=== PATIENT | female | born 1995 | race Caucasian/White ===

== ENCOUNTER → 2018-10-03 13:16 | Outpatient (CLI) | payer OTHER, SELFPAY ==
[2018-10-03 09:45] VITALS: BMI 25.8
[2018-10-03 16:33] LABS: Chlamydia Trachomatis by PCR Negative (Negative); Neisserai gonorrhoeae by PCR Negative (Negative); Probe Check PASS; Sample Adequacy Control PASS; Specimen Processing Control PASS
== END ==
PROVIDERS: Family Provider Family Medicine; PCP Family Medicine; Referring Provider Obstetrics & Gynecology; Visit Provider Obstetrics & Gynecology
DX: Z34.91 Encounter for supervision of normal pregnancy, unspecified, first trimester (principal); Z3A.08 8 weeks gestation of pregnancy
CPT/HCPCS: 87086; 87088; 87491; 87591

== ENCOUNTER → 2018-10-18 | Outpatient (CLI) | payer OTHER, SELFPAY ==
[2018-10-18 08:30] VITALS: BMI 25.8
[2018-10-18 09:22] LABS: Absolute Lymphocyte Count 2.15 X10^3/uL (0.83-4.51); Absolute Neutrophil Count 5.3 X10^3/uL (2.0-7.7); Basophil# 0.03 X10^3/uL; Basophil% 0.4 % (0-1); Eosinophil# 0.06 X10^3/uL; Eosinophils% 0.7 % (0-5); Hematocrit 41.1 % (37-47); Hemoglobin 13.7 g/dL (12.0-15.0); Lymphocyte # 2.15 X10^3/ul (4.0); Lymphocyte % 25.7 % (19-41); Mean Corp Hgb Conc 33.3 g/dL (32-36); Mean Corpuscular Hgb 28.8 pg (27.0-32.0); Mean Corpuscular Volume 86.5 fL (81-99); Mean Platelet Vol. 10.8 fl (6.2-12.0); Monocyte# 0.82 X10^3/uL; Monocyte% 9.8 % (0-10); NRBC Flagged by Analyzer 0 % (0-5); Neutrophil # 5.27 X10^3/uL (2.7-7.7); Platelet Count 263 K/mm3 (150-450); RBC Distribution Width CV 12.9 % (11.6-14.6); RBC Distribution Width SD 40.4 fl (35.1-43.9); Red Blood Count 4.75 M/mm3 (4.2-5.4); White Blood Count 8.4 K/mm3 (4.4-11.0)
[2018-10-18 10:28] LABS: HIV - WCH Non-Reactive (Nonreactive); Rubella IgG > 500.0 IU/mL
[2018-10-21 00:53] LABS: Rapid Plasmin Reagin (RPR) NONREACTIVE (NONREACTIVE)
== END | disposition home or self-care (01) ==
LOC: PAVLAB 09:08
PROVIDERS: Family Provider Family Medicine; PCP Family Medicine; Referring Provider Obstetrics & Gynecology; Visit Provider Obstetrics & Gynecology
DX: Z34.91 Encounter for supervision of normal pregnancy, unspecified, first trimester (principal); Z3A.08 8 weeks gestation of pregnancy
CPT/HCPCS: 36415; 85025; 86592; 86703; 86762; 86850; 86900; 86901

== ENCOUNTER → 2019-03-16 16:26 | Outpatient (CLI) | payer OTHER, SELFPAY ==
[2019-03-16 16:00] VITALS: BMI 25.8
[2019-03-16 16:54] LABS: Absolute Lymphocyte Count 2.48 X10^3/uL (0.83-4.51); Absolute Neutrophil Count 8.8 X10^3/uL (2.0-7.7); Basophil# 0.05 X10^3/uL; Basophil% 0.4 % (0-1); Eosinophil# 0.07 X10^3/uL; Eosinophils% 0.6 % (0-5); Hematocrit 33.6 % (37-47); Hemoglobin 11.2 g/dL (12.0-15.0); Lymphocyte # 2.48 X10^3/ul (4.0); Lymphocyte % 19.7 % (19-41); Mean Corp Hgb Conc 33.3 g/dL (32-36); Mean Corpuscular Hgb 29.6 pg (27.0-32.0); Mean Corpuscular Volume 88.7 fL (81-99); Mean Platelet Vol. 11.9 fl (6.2-12.0); Monocyte# 1.15 X10^3/uL; Monocyte% 9.1 % (0-10); NRBC Flagged by Analyzer 0 % (0-5); Neutrophil # 8.75 X10^3/uL (2.7-7.7); Neutrophil % 69.2 % (47-70); Platelet Count 214 K/mm3 (150-450); RBC Distribution Width SD 41.8 fl (35.1-43.9); Red Blood Count 3.79 M/mm3 (4.2-5.4); White Blood Count 12.6 K/mm3 (4.4-11.0)
[2019-03-16 17:21] LABS: Glucose Challenge Gest 1H 50g 84 mg/dL (70-140)
[2019-03-17 08:51] LABS: Hepatitis B Surface Antigen Non-Reactive (Nonreactive)
== END ==
PROVIDERS: PCP Family Medicine; Referring Provider Obstetrics & Gynecology; Visit Provider Obstetrics & Gynecology
DX: Z34.01 Encounter for supervision of normal first pregnancy, first trimester (principal)
CPT/HCPCS: 36415; 82950; 85025; 87340

== ENCOUNTER → 2019-05-08 | Outpatient (CLI) | payer OTHER, SELFPAY ==
[2019-05-08 14:50] VITALS: BMI 25.8
== END | disposition home or self-care (01) ==
LOC: LABSPEC 16:47
PROVIDERS: PCP Family Medicine; Referring Provider Nurse Practitioner Women's Health; Visit Provider Nurse Practitioner Women's Health
DX: Z34.90 Encounter for supervision of normal pregnancy, unspecified, unspecified trimester (principal)
CPT/HCPCS: 87081

== ENCOUNTER 2019-05-26 03:06 | Inpatient (IN) | payer OTHER, SELFPAY ==
[2019-03-16 16:00] VITALS: BMI 25.8
[2019-05-22 14:55] VITALS: BMI 25.8
[2019-05-26] VITALS (23 sets, daily range): BP systolic 100–131; BP diastolic 54–79; PULSE 75–115; RESP 16–18; TEMP 36.4–37.1; O2SAT 96–99; BMI 30.1
[2019-05-26] MEDS: Lactated Ringers 1,000 ML 999 ML IV (00:50)
[2019-05-26 01:01] LABS: Absolute Lymphocyte Count 2.53 X10^3/uL (0.83-4.51); Absolute Neutrophil Count 11.2 X10^3/uL (2.0-7.7); Basophil# 0.04 X10^3/uL; Basophil% 0.3 % (0-1); Eosinophil# 0.03 X10^3/uL; Eosinophils% 0.2 % (0-5); Hematocrit 32.8 % (37-47); Hemoglobin 10.8 g/dL (12.0-15.0); Lymphocyte # 2.53 X10^3/ul (4.0); Lymphocyte % 16.6 % (19-41); Mean Corp Hgb Conc 32.9 g/dL (32-36); Mean Corpuscular Hgb 28.6 pg (27.0-32.0); Mean Corpuscular Volume 86.8 fL (81-99); Mean Platelet Vol. 12.8 fl (6.2-12.0); Monocyte# 1.24 X10^3/uL; Monocyte% 8.1 % (0-10); NRBC Flagged by Analyzer 0 % (0-5); Neutrophil # 11.23 X10^3/uL (2.7-7.7); Neutrophil % 73.7 % (47-70); Platelet Count 144 K/mm3 (150-450); RBC Distribution Width SD 43.9 fl (35.1-43.9); Red Blood Count 3.78 M/mm3 (4.2-5.4); White Blood Count 15.2 K/mm3 (4.4-11.0)
[2019-05-26 01:16] LABS: Fibrinogen 378 mg/dl (203-444)
[2019-05-26] MEDS: Lactated Ringers 1,000 ML 100 ML IV (01:51)
--- NOTE | 2019-05-26 03:56 | HP.PCM_ITS ---
- Problem List (1) Supervision of normal Status: Acute Qualifiers: Comment: PRR KD 06/01/19 surprise Spouse Luke (2) Status: Acute Qualifiers: Comment: declined genetic, carrier and NTD . Normal anatomy History Date of Admission: 05/26/19 Final KD: 06/01/19 Gestational age: 39 Weeks and 1 Days History of this : This is a 23 year-old, , at 39 weeks gestational age presents IAL 4 cm, with bloody show, good fm, regular ctx. Surgical History: Surgical History (Last Reviewed 05/22/19 @ 14:50 by Tatiana Garcia) [place] teeth extracted K08.499 Allergies No Known Allergies Allergy (Verified 05/22/19 14:51) Home Medications: Home Medications multivitamin no.47-iron fum 27 mg-folate no.1 1 mg-dha 300 mg capsule 1 cap PO DAILY cap 10/03/18 Smoking Status: Never smoker NST - FHR Rate Baby A Baseline: 130 Variability:: Moderate Accelerations:: 15 x 15 Decelerations:: None NST Reactive:: Yes FHR Category:: Category I Uterine Activity:: q 4-5 History Past Pregnancies: Past Pregnancies Delivery Date Name GA/ Weeks Outcome Route Wt Sex Labor Length Anesthesia Delivery Location Provider FOB Labs: Mom's Labs & Results 05/26/19 05/26/19 00:48 00:48 WBC 15.2 H RBC 3.78 L Hgb 10.8 L Hct 32.8 L MCV 86.8 MCH 28.6 MCHC 32.9 RDW Std Deviation 43.9 RDW Coeff of Scooter 14.0 Plt Count 144 L MPV 12.8 H Immature Gran % (Auto) 1.100 H Neut % (Auto) 73.7 H Lymph % (Auto) 16.6 L [place] % (Auto) 8.1 Eos % (Auto) 0.2 Baso % (Auto) 0.3 Absolute Neuts (auto) 11.2 H Absolute Lymphs (auto) 2.53 Nucleated RBC % 0 Fibrinogen 378 Course Did the patient receive Yes care? Labs Blood Type: A RH: POSITIVE RPR/VDRL/Syphilis Nonreactive Rubella status Immune HbSAg Negative Date Done: 03/16/19 Chlamydia Negative Gonorrhea Negative HIV/AIDS Non-Reactive Group B Strep: Negative Current Obstetrical History Gestational Diabetes No Incompetent Cervix No Infertility No IUGR No Macrosomia No Hypertension/Pre-eclampsia No Placenta Previa/Abruption Yes: resolved at 28 weeks PTL/PROM No Uterine anomaly No Oligohydramnios No Polyhydramnios No Multiple gestation No Past Medical History Asthma No Diabetes No Hypertension No Heart disease No Mitral valve prolapse No Neurologic/Seizure disorder/ No Migraines Kidney disease No Liver disease No Varicosities Yes: bilat legs Clotting disorders/Hx of DVT No Thyroid Dysfunction No Other medical diseases No Psychiatric disorders No Major trauma No Abnormal PAP smear No Sleep apnea No Mammogram in the last 2 years No Social History Marital Status: Alleged father yenni isaac Hx Smoking No Smoking Status Never smoker How long have you used n/a substances (years)? What date/time did you last n/a use any of the above? Have you had any previous n/a inpatient or outpatient treatment Expected Infant Delivery Method: Spontaneous Vaginal Review of Systems Constitutional: Denies: Fever, Malaise Eyes: Denies: Blurred vision, Vision Change HEENT: Denies: Head Aches, Visual Changes Cardiovascular: Denies: Chest Pain, Palpitations Respiratory: Denies: Cough, Shortness of Breath, Wheezing Gastrointestinal: Denies: Abdominal Pain, Diarrhea, Nausea, Vomiting Genitourinary: Denies: Dysuria, Hematuria Gynecological: Reports: Vaginal bleeding Musculoskeletal: Denies: Joint Pain, Muscle pain Skin: Denies: Lesions, Rash Neurological: Denies: Blurred vision, Focal weakness, Headaches Psychiatric: Denies: Anxiety, Depression Endocrine: Denies: Heat/ Cold Intolerance Hematologic/ Lymphatic: Denies: Easy Bruising, Easy Bleeding Physical Exam Vitals: Vital Signs Temp Pulse BP Pulse Ox 98.7 F 86 118/67 97 05/26/19 02:48 05/26/19 02:48 05/26/19 02:48 05/26/19 02:48 General: Alert, Cooperative, No apparent distress HEENT: Atraumatic, Normocephalic. Negative for: Thyromegaly, Lymphadenopathy Cardiovascular: Regular rate Lungs: Normal air movement Abdomen: Soft, Non Tender, Gravid Neurological: Deep Tendon Reflexes 2+/4 and Symmetrical, Neuro grossly intact. Negative for: Clonus RN TELEPHONE TRIAGE: Normal external genitalia. Negative for: Vulvar lesions Estimated gestational size: Appropriate for gestational size Presentation: Cephalic Cervix Dilation (cm): 4 Station: -1 Effacement (%): 70 Assessment/Plan All Active Problems (Last Reviewed 05/22/19 @ 14:50 by Tatiana Garcia) Supervision of normal (Acute) (Acute) Complete placenta previa nos or without hemorrhage, second trimester (Resolved) This is a 23 year-old, at 39 weeks gestational age presents IAL. Patient presents IAL, plan expectant management for , Pitocin/AROM if needed. Pain management: First minimal intervention. GBS negative. Management of any complications: None I have reviewed the [facility] and made any clinically relevant updates.
[2019-05-26] MEDS: 0.9% Saline Lock 10 ML Syringe IV ×2 (04:42→10:09)
[2019-05-26] MEDS: Oxytocin 30 units/NS 500 ml 30 UNITS/500 ML IV.SOLN 334 UNITS IV (07:36)
[2019-05-26] MEDS: Methylergonovine 0.2 MG/ML Ampul IM (07:45)
--- NOTE | 2019-05-26 09:21 | OP.PCM_ITS ---
Problem List (1) Supervision of normal Status: Acute Qualifiers: Comment: PRR KD 06/01/19 surprise Spouse Luke (2) Status: Acute Qualifiers: Comment: declined genetic, carrier and NTD . Normal anatomy (3) Uterine atony, , without hemorrhage Status: Acute Vaginal Delivery Maternal Presentation: Active Labor ial Amniotic Membrane Rupture Type: Artificial Amniotic Fluid Description: Clear Date of Procedure: 05/26/19 Pre-Operative Diagnosis: ial Post-Operative Diagnosis: same Surgery/ Procedure Performed: Spontaneous Vaginal Delivery Type of Anesthesia: Local with 1% lidocaine Description of Procedure: Patient began pushing and delivered the head in the [LEYDA] presentation. The head was delivered atraumatically [and a loose nuchal cord ?1 was identified and easily reduced over the 's head]. The anterior and posterior shoulders delivered without complication followed by the rest of the infant and the was placed on the maternal abdomen. Delayed cord clamping was employed for approximately 60 seconds. Cord was clamped and cut and gentle traction was applied to the cord and the placenta delivered spontaneously immediately following it was noted to be intact with three-vessel cord. The perineum and vagina were inspected and noted to have a perineal first-degree laceration that was repaired in the usual fashion with 3-0 Vicryl Rapide. Later after delivery a right periurethral tear was noted and this was treated with Richard and compression without any stitches needed.. EBL was 400 cc at the time of delivery and 200 cc immediately to a total of 600. Patient and infant tolerated delivery well. Presentation: ANA PAULA Placental Delivery Description: Spontaneous Placenta Disposition: [facility] Cord Vessel Description: 3 Vessels Cord Entanglement: Around neck x 1, loose Estimated Blood Loss: 600 A gender: Female Episiotomy Description: None Laceration: Periurethral Extnsion/lac - richard applied, Perineal Extension/lac, 1st degree Medications given after delivery: IV Pitocin, IM Methergin Complications: None Multi Select Codes - Urinary/Genital Urinary/Genital CPT Codes: 90633 Vaginal Delivery [facility]
[2019-05-26] MEDS: Naproxen 250 MG Tablet 500 MG PO ×2 (09:39→18:10)
--- NOTE | 2019-05-26 11:11 | NURSING ---
pt.'s fundus firm, no further trickling
[2019-05-26] MEDS: Prenatal Vits Tablet 1 TABLET PO (17:04)
[2019-05-26] MEDS: Senna/Docusate Sodium 1 Tablet PO (18:10)
[2019-05-27 00:35] VITALS: BP 108/58; PULSE 94; RESP 16; TEMP 36.6
[2019-05-27 05:08] VITALS: BP 107/64; PULSE 83; RESP 16; TEMP 36.7
--- NOTE | 2019-05-27 07:31 | PCM.PN.OB ---
Patient Problems: Active and Suspected Problems (Last Reviewed 05/22/19 @ 14:50 by Tatiana Garcia) Uterine atony, , without hemorrhage (Acute) Subjective: doing well no complaints pain controlled no CP SOB N V ambulating well tolerating po lochia moderate, going well - Physical Exam Vitals/I&O's: Vital Signs Temp Pulse Resp BP Pulse Ox 98.1 F 83 16 107/64 97 05/27/19 05:08 05/27/19 05:08 05/27/19 05:08 05/27/19 05:08 05/26/19 06:05 Weight: 198 lb Body Mass Index (BMI) 30.1 Intake and Output for Last 24 Hours 05/25/19 05/26/19 05/27/19 23:59 23:59 23:59 Intake Total 2014 Output Total 1525 / 1525 Balance 490 / 490 General: Alert, Oriented x3 Current Medications Acetaminophen (Tylenol) 1,000 mg PO Q8H PRN PRN PRN Reason: Pain Score 1-3/10 Bisacodyl (Dulcolax) 10 mg RECTAL UD PRN PRN Reason: If no BM Dibucaine (Dibucaine) 1 applic TOPICAL TID PRN PRN; Protocol PRN Reason: Discomfort Hydrocortisone (Hytone) 1 applic TOPICAL TID PRN PRN; Protocol PRN Reason: Discomfort Methylergonovine Maleate (Methergine) 0.2 mg IM X1 PRN PRN Reason: Excess bleeding/uterine atony Last Admin: 05/26/19 07:45 Dose: 0.2 mg Documented by: Naproxen (Naprosyn) 500 mg PO Q8H PRN PRN PRN Reason: Pain Score 1-3/10 Last Admin: 05/26/19 18:10 Dose: 500 mg Documented by: Ondansetron HCl (Zofran) 4 mg IV Q4H PRN PRN PRN Reason: Nausea Oxycodone HCl (Oxyir) 5 - 10 mg PO Q4H PRN PRN PRN Reason: Pain Score 4-10/10 Multivit/Folic Acid/Iron (Prenatabs Fa) 1 tablet PO DAILY@1200 RADHA Last Admin: 05/26/19 17:04 Dose: 1 tablet Documented by: Senna/Docusate Sodium (Senokot-S, Darlene-Colace) 1 - 2 tablet PO DAILY PRN PRN PRN Reason: Constipation Last Admin: 05/26/19 18:10 Dose: 2 tablet Documented by: Simethicone (Mylicon) 80 mg PO PCHS PRN PRN Reason: Indigestion/Stomach pain Sodium Chloride () 5 - 15 ml IV UD PRN PRN Reason: SALINE FLUSH Last Admin: 05/26/19 10:09 Dose: 10 ml Documented by: Medical Necessity - Tobacco Use Smoking Status: Never smoker Assessment/Plan All Active Problems (Last Reviewed 05/22/19 @ 14:50 by Tatiana Garcia) Uterine atony, , without hemorrhage (Acute) Supervision of normal (Acute) (Acute) Complete placenta previa nos or without hemorrhage, second trimester (Resolved) s/p PPD # 1 1. routine post delivery care 2. breast feeding- support given 3. rh positive 4. rubella immune
--- NOTE | 2019-05-27 07:32 | DCINST_ITS ---
Discharge Diet: No Restrictions Discharge Activity: Return to Normal Activity, May not drive while taking narcotic pain medications., May Shower May resume sexual activity in: 4-6 weeks Call your doctor if your incision/area has: Continuous Slow Oozing, Sudden Increased Bleeding, Increased Pain/ Swelling, Increased Redness, Foul Smelling Discharge Additional Instructions: If you experience any of the following, contact your healthcare provider. * Bleeding that soaks a pad every hour for 2 hours * Fever 100.4 or higher * Unrelieved incision or abdominal pain * Swelling, redness, discharge or bleeding from your incision or episiotomy site * Your incision begins to separate * Problems urinating (including inability to urinate or burning while urinating). * Visual changes * Severe headache * Flu-like symptoms * Pain or redness in one of both of your breasts * Pain, warmth, tenderness or swelling in your legs, especially the calf area * Frequent nausea and vomiting * Symptoms of depression or anxiety If you experience any of the following, call 911 or go to the nearest Emergency Room. * Chest pain * Problems breathing * Seizure activity * Partial or complete paralysis of a body part, slurred speech, weakness or drooping of the face, or a sudden inability to walk or hold your balance Allergies/Adverse Reactions: Allergies No Known Allergies Allergy (Verified 05/22/19 14:51) Medications to take at Discharge multivitamin no.47-iron fum 27 mg-folate no.1 1 mg-dha 300 mg capsule 1 cap PO DAILY cap 10/03/18 Naproxen [Naprosyn] 250 - 500 mg PO Q8H PRN PRN #30 tab 05/27/19 The following prescriptions were given: Naproxen [Naprosyn] 250 - 500 mg PO Q8H PRN PRN #30 tab PRN Reason: MILD PAIN Transmission Status: Pending to [facility] Please Follow Up With: Rachelle Plascencia MD - [phone] When: Call to make an appointment with your doctor in 6 weeks. If you had elevated Blood pressure or 4th degree laceration you will need to be seen in 2 weeks. Primary Care Physician: Felipe Cruz MD [Primary Care Provider] - Test Results: Test results from this visit will be discussed in further detail at your follow- up appointment, if applicable.
--- NOTE | 2019-05-27 07:32 | PCM.DCVAG ---
Discharge Diet: No Restrictions Discharge Activity: Return to Normal Activity, May not drive while taking narcotic pain medications., May Shower May resume sexual activity in: 4-6 weeks Call your doctor if your incision/area has: Continuous Slow Oozing, Sudden Increased Bleeding, Increased Pain/ Swelling, Increased Redness, Foul Smelling Discharge Additional Instructions: If you experience any of the following, contact your healthcare provider. Bleeding that soaks a pad every hour for 2 hours Fever 100.4 or higher Unrelieved incision or abdominal pain Swelling, redness, discharge or bleeding from your incision or episiotomy site Your incision begins to separate Problems urinating (including inability to urinate or burning while urinating). Visual changes Severe headache Flu-like symptoms Pain or redness in one of both of your breasts Pain, warmth, tenderness or swelling in your legs, especially the calf area Frequent nausea and vomiting Symptoms of depression or anxiety If you experience any of the following, call 911 or go to the nearest Emergency Room. Chest pain Problems breathing Seizure activity Partial or complete paralysis of a body part, slurred speech, weakness or drooping of the face, or a sudden inability to walk or hold your balance Allergies/Adverse Reactions: Allergies No Known Allergies Allergy (Verified 05/22/19 14:51) Medications to take at Discharge multivitamin no.47-iron fum 27 mg-folate no.1 1 mg-dha 300 mg capsule 1 cap PO DAILY cap 10/03/18 Naproxen [Naprosyn] 250 - 500 mg PO Q8H PRN PRN #30 tab 05/27/19 The following prescriptions were given: Naproxen [Naprosyn] 250 - 500 mg PO Q8H PRN PRN #30 tab PRN Reason: MILD PAIN Transmission Status: Pending to [facility] Please Follow Up With: Rachelle Plascencia MD - [phone] When: Call to make an appointment with your doctor in 6 weeks. If you had elevated Blood pressure or 4th degree laceration you will need to be seen in 2 weeks. Primary Care Physician: Felipe Cruz MD [Primary Care Provider] - Test Results: Test results from this visit will be discussed in further detail at your follow-up appointment, if applicable.
[2019-05-27] MEDS: Naproxen 250 MG Tablet 500 MG PO (07:59)
[2019-05-27 08:00] VITALS: BP 96/60; PULSE 79; RESP 16; TEMP 36.6
[2019-05-27] MEDS: Prenatal Vits Tablet 1 TABLET PO (11:41)
[2019-05-27 14:35] VITALS: BP 118/78; PULSE 103; TEMP 37.2
== END 2019-05-27 17:10 | disposition home or self-care (01) | DRG 807 ==
LOC: WPOUT 03:09 → WP 03:09
PROVIDERS: Admitting Provider Obstetrics & Gynecology; PCP Family Medicine; Visit Provider Obstetrics & Gynecology
DX: O69.81X0 Labor and delivery complicated by cord around neck, without compression, not applicable or unspecified (principal); Z37.0 Single live birth; O70.0 First degree perineal laceration during delivery; O71.82 Other specified trauma to perineum and vulva; Z3A.39 39 weeks gestation of pregnancy
CPT/HCPCS: 59025; 59050; 85025; 85384; 99218; J7120; A4216; G0378

== ENCOUNTER → 2019-05-31 08:40 | Outpatient (CLI) | payer OTHER, SELFPAY ==
[2019-05-26 00:43] VITALS: BMI 30.1
== END ==
PROVIDERS: PCP Family Medicine; Referring Provider Obstetrics & Gynecology; Visit Provider Obstetrics & Gynecology
DX: O91.22 Nonpurulent mastitis associated with the puerperium (principal); O92.79 Other disorders of lactation
CPT/HCPCS: 96158; 96159

== ENCOUNTER → 2020-03-18 | Outpatient (CLI) | payer OTHER, SELFPAY ==
[2020-03-18 10:25] VITALS: BMI 26.7
[2020-03-26 08:34] LABS: HPV APTIMA, High Risk Negative (Negative); HPV Reflexed? YES, CHARGE PATIENT
== END | disposition home or self-care (01) ==
LOC: LABSPEC 13:06
PROVIDERS: Referring Provider Obstetrics & Gynecology; Visit Provider Obstetrics & Gynecology
DX: Z12.4 Encounter for screening for malignant neoplasm of cervix (principal)
CPT/HCPCS: 87624; 88175; G0145

== ENCOUNTER → 2020-11-07 10:06 | Outpatient (CLI) | payer OTHER, SELFPAY ==
[2020-11-07 10:26] LABS: Absolute Neutrophil Count 2.5 X10^3/uL (2.0-7.7); Basophil# 0.03 X10^3/uL; Basophil% 0.7 % (0-1); Eosinophil# 0.02 X10^3/uL; Eosinophils% 0.4 % (0-5); Hematocrit 39.9 % (37-47); Hemoglobin 13.1 g/dL (12.0-15.0); Lymphocyte % 26.1 % (19-41); Mean Corp Hgb Conc 32.8 g/dL (32-36); Mean Corpuscular Hgb 27.9 pg (27.0-32.0); Mean Corpuscular Volume 84.9 fL (81-99); Mean Platelet Vol. 11.7 fl (6.2-12.0); Monocyte# 0.85 X10^3/uL; Monocyte% 18.5 % (0-10); NRBC Flagged by Analyzer 0 % (0-5); Neutrophil # 2.48 X10^3/uL (2.7-7.7); Neutrophil % 54.1 % (47-70); Platelet Count 233 K/mm3 (150-450); RBC Distribution Width CV 13.2 % (11.6-14.6); RBC Distribution Width SD 41.4 fl (35.1-43.9); White Blood Count 4.6 K/mm3 (4.4-11.0)
[2020-11-07 11:58] LABS: Amphetamine Urine VISTA NEGATIVE (<1000 ng/mL); Barbiturate Urine VISTA NEGATIVE (< 200 ng/mL); Benzodiazepine Urine VISTA NEGATIVE (< 200 ng/mL); Cocaine Urine VISTA NEGATIVE (< 300 ng/mL); Ecstacy Urine VISTA NEGATIVE (< 500 ng/mL); Methadone Urine VISTA NEGATIVE (< 300 ng/mL); PCP Urine VISTA NEGATIVE (< 25 ng/mL); THC Urine VISTA NEGATIVE (< 50 ng/mL); Vista UDS pH Range 6
[2020-11-07 12:01] LABS: HIV - WCH Non-Reactive (Nonreactive); Hepatitis B Surface Antigen Non-Reactive (Nonreactive); Hepatitis C Antibody Non-Reactive (Nonreactive); Rubella IgG Reactive (Nonreactive); Syphilis Antibodies Non-reactive
[2020-11-09 03:08] LABS: Chlamydia By Nucleic Acid AMP Negative (Negative)
[2020-11-09 09:05] LABS: Gonococcus By Nucleic Acid AMP Negative (Negative)
== END ==
PROVIDERS: Referring Provider Obstetrics & Gynecology; Visit Provider Obstetrics & Gynecology
DX: Z34.80 Encounter for supervision of other normal pregnancy, unspecified trimester (principal)
CPT/HCPCS: 36415; 80307; 85025; 86703; 86762; 86780; 86803; 86850; 86900; 86901; 87086; 87088; 87340; 87491; 87591

== ENCOUNTER → 2021-01-14 13:47 | Outpatient (CLI) | payer BC, OTHER, SELFPAY ==
--- NOTE | 2021-01-14 13:52 | US_ITS ---
HISTORY: 20 week OB- ANTATOMY SCAN. TECHNIQUE: Transabdominal and transvaginal pelvic ultrasound was performed. # of images incl. paperwork: 135. COMPARISON: None. FINDINGS: INTRAUTERINE GESTATION(s): Single. PRESENTATION: Breech. PLACENTA: Fundal and grade 0 with a 3.2 cm placental vazquez noted. No placenta previa. CERVIX: Closed .4.8 cm in length. AMNIOTIC FLUID: Maximum vertical pocket 5.6 cm. HEART MOTION: 137 bpm. BIPARIETAL DIAMETER: 4.8 cm, 20 weeks 4 days. HEAD CIRCUMFERENCE: 18.2 cm, 20 weeks 4 days. ABDOMINAL CIRCUMFERENCE: 15.7 cm, 20 weeks 5 days FEMUR LENGTH: 3.1 cm, 19 weeks 3 days. ESTIMATED WEIGHT: 344 g, corresponding to 37th percentile. ESTIMATED GESTATIONAL AGE: 19 weeks 6 days. ESTIMATED DUE DATE (KD): 06/04/2020 ANATOMIC SURVEY:Face with nose/lips and profile, anterior and posterior cranial fossa, spine, four-chamber heart, three-vessel cord insertion, kidneys, bladder, bilateral upper and lower extremities visualized. US/OB Anatomy Scan IMPRESSION: Single living intrauterine currently in breech presentation with an estimated gestational age of 19 weeks 6 days. Unremarkable anatomic survey. Small placental vazquez noted. at 1150 Reported and signed by: Aida Lagos MD Electronically Signed: Aida Lagos MD at 11:49 EST Tel , Service support ,
--- NOTE | 2021-03-11 15:09 | US_ITS ---
STUDY: SECOND AND THIRD TRIMESTER OBSTETRICAL ULTRASOUND - LIMITED REASON FOR EXAM: Female, 25 years old. Follow-up placental [place]. LMP: August 272020. PRIOR ULTRASOUND: 01/14/2021. TECHNIQUE: Transabdominal TECHNICAL QUALITY: Adequate. FINDINGS: There is a single intrauterine fetus. The fetus is in a cephalic presentation. There is demonstrated cardiac activity with a heart rate of 148 bpm. There is a normal amniotic fluid volume. The largest amniotic fluid pocket measures 6.05 cm. The amniotic fluid index (KENDRICK) is 19.75 cm. The placenta is anterior in location and is not low lying. There are Grade 1 placental changes. There is a stable placental vazquez unchanged from the previous study. The cervix measures 5.18 cm cm in length. BIOMETRY: BPD: 0.72 cm: 30 weeks, 6 days HC: 27.33 cm: 29 weeks, 5 days AC: 25.8 cm: 29 weeks, 6 days FL: 5.08 cm: 27 weeks, 1 days Age by LMP: 28 weeks, 3 days. KD by LMP: 05/31/2021. age by prior US: 27 weeks, 6 days. KD by prior US: 06/04/2021. age by current US: 29 weeks, 1 days. KD by current US: 05/26/2021. Estimated weight: 1371 grams, +/- 206 grams, 7 percentile. Gender: Indeterminant US/OB Limited With Biometrics IMPRESSION: 1. Live single intrauterine at 29 weeks, 1 day. KD is 05/26/2021. There is adequate interval growth since prior ultrasound. 2. EFW 1371 g. 3. KENDRICK of 19.75 cm. 4. Anterior grade 1 placenta. There is a stable placental vazquez. 5. Vertex presentation. Electronically Signed: Skyler Beaver DO at 17:18 EST Tel [phone], Service support ,
== END ==
PROVIDERS: PCP Family Medicine; Referring Provider Nurse Practitioner Women's Health; Visit Provider Nurse Practitioner Women's Health
DX: Z34.92 Encounter for supervision of normal pregnancy, unspecified, second trimester (principal)
CPT/HCPCS: 76805; 76817

== ENCOUNTER 2021-03-11 15:15 | Outpatient (CLI) | payer OTHER, BC, SELFPAY | END 2021-03-11 23:59 | disposition short-term general hospital (02) | PROVIDERS: PCP Family Medicine; Referring Provider Nurse Practitioner Women's Health; Visit Provider Nurse Practitioner Women's Health | DX: Z36.89 Encounter for other specified antenatal screening (principal) | CPT/HCPCS: 76816 ==

== ENCOUNTER 2021-03-12 08:59 | Outpatient (CLI) | payer OTHER, BC, SELFPAY ==
[2021-03-12 09:22] LABS: Absolute Neutrophil Count 6.9 X10^3/uL (2.0-7.7); Basophil# 0.04 X10^3/uL; Basophil% 0.4 % (0-1); Hematocrit 33.4 % (37-47); Hemoglobin 10.8 g/dL (12.0-15.0); Lymphocyte % 19.9 % (19-41); Mean Corp Hgb Conc 32.3 g/dL (32-36); Mean Corpuscular Hgb 28.3 pg (27.0-32.0); Mean Corpuscular Volume 87.7 fL (81-99); Mean Platelet Vol. 11.6 fl (6.2-12.0); Monocyte# 0.86 X10^3/uL; Monocyte% 8.6 % (0-10); NRBC Flagged by Analyzer 0 % (0-5); Neutrophil # 6.93 X10^3/uL (2.7-7.7); Neutrophil % 68.9 % (47-70); Platelet Count 232 K/mm3 (150-450); RBC Distribution Width CV 13.1 % (11.6-14.6); RBC Distribution Width SD 41.1 fl (35.1-43.9); Red Blood Count 3.81 M/mm3 (4.2-5.4); White Blood Count 10.1 K/mm3 (4.4-11.0)
[2021-03-12 09:35] LABS: Glucose Challenge Gest 1H 50g 78 mg/dL (70-140)
== END 2021-03-12 23:59 | disposition short-term general hospital (02) ==
PROVIDERS: PCP Family Medicine; Referring Provider Obstetrics & Gynecology; Visit Provider Obstetrics & Gynecology
DX: Z34.80 Encounter for supervision of other normal pregnancy, unspecified trimester (principal)
CPT/HCPCS: 36415; 82950; 85025

== ENCOUNTER 2021-04-21 09:50 | Outpatient (CLI) | payer OTHER, BC, SELFPAY ==
--- NOTE | 2021-04-21 09:52 | US_ITS ---
STUDY: SECOND AND THIRD TRIMESTER OBSTETRICAL ULTRASOUND - LIMITED REASON FOR EXAM: Female, 25 years old 32 weeks LMP: 08/24/2020. PRIOR ULTRASOUND: Comparison is made with prior study dated 03/11/2021. TECHNIQUE: Transabdominal TECHNICAL QUALITY: Adequate. FINDINGS: There is a single intrauterine fetus. The fetus is in a breech presentation. There is demonstrated cardiac activity with a heart rate of 143 bpm. There is a normal amniotic fluid volume. The largest amniotic fluid pocket measures 143 cm. The amniotic fluid index (KENDRICK) is 5.7 cm. The placenta is 18.06 There are Grade 1 placental changes. The cervix measures 5.24 cm in length. BIOMETRY: BPD: 8.89 cm: 36 weeks, 0 days HC: 33.01 cm: 37 weeks, 5 days AC: 31.14 cm: 35 weeks, 1 days FL: 6.29 cm: 32 weeks, 4 days Age by LMP: 34 weeks, 2 days. KD by LMP: 05/31/2021. age by prior US: 35 weeks, 0 days. KD by prior US: 05/26/2021. age by current US: 35 weeks, 3 days. KD by current US: 05/23/2021. Estimated weight: 2503 grams, +/- 365 grams, 58 percentile. US/OB Limited With Biometrics IMPRESSION: Single live uterine gestation with a mean gestational age of 35 weeks. The measurements obtained today fall within the normal expected range. Electronically Signed: Ravinder Zeng MD at 15:25 EST ,
== END 2021-04-21 23:59 | disposition home or self-care (01) ==
LOC: US 09:51
PROVIDERS: PCP Family Medicine; Referring Provider Nurse Practitioner Women's Health; Visit Provider Nurse Practitioner Women's Health
DX: O98.513 Other viral diseases complicating pregnancy, third trimester (principal); U07.1 COVID-19; Z3A.32 32 weeks gestation of pregnancy
CPT/HCPCS: 76816

== ENCOUNTER 2021-05-07 13:17 | Outpatient (CLI) | payer OTHER, BC, SELFPAY | END 2021-05-07 23:59 | disposition home or self-care (01) | LOC: LABSPEC 13:18 | PROVIDERS: PCP Family Medicine; Visit Provider Obstetrics & Gynecology | DX: Z34.80 Encounter for supervision of other normal pregnancy, unspecified trimester (principal) | CPT/HCPCS: 87081 ==

== ENCOUNTER 2021-05-18 14:45 | Outpatient (CLI) | payer OTHER, BC, SELFPAY ==
[2021-05-18 14:59] VITALS: BP 125/66; PULSE 96; TEMP 36.7; O2SAT 97
[2021-05-18 15:01] VITALS: BMI 32.2
--- NOTE | 2021-05-19 03:30 | OB.TRI.PN_ITS ---
Progress Notes Date of Service: 05/18/21 Progress Note: Patient presents for triage evaluation secondary to decreased movement FHT: 140 Moderate variability reactive no decelerations category I tracing [place]: no regular Contractions Assessment and plan: dec movement Reactive NST, reassuring maternal and status patient discharged to home to follow-up as scheduled. See problem list details for additional plan information. Charges/Coding Procedures Urinary/Genital 52xxx-[id number]: 15698-81 non-stress test Interp
== END 2021-05-18 23:59 | disposition home or self-care (01) ==
LOC: WPOUT 14:53 → WP 14:59
PROVIDERS: PCP Family Medicine; Visit Provider Obstetrics & Gynecology
DX: O36.8190 Decreased fetal movements, unspecified trimester, not applicable or unspecified (principal)
CPT/HCPCS: 59025; 59050; 99218; G0378

== ENCOUNTER 2021-05-20 09:50 | Outpatient (CLI) | payer OTHER, BC, SELFPAY ==
--- NOTE | 2021-05-20 09:51 | US_ITS ---
STUDY: SECOND AND THIRD TRIMESTER OBSTETRICAL ULTRASOUND - LIMITED REASON FOR EXAM: Female, 25 years old 38 weeks routine survey LMP: 08/24/2020 PRIOR ULTRASOUND: 04/21/2021 TECHNIQUE: Transabdominal TECHNICAL QUALITY: Adequate. FINDINGS: There is a single intrauterine fetus. The fetus is in a cephalic presentation. There is demonstrated cardiac activity with a heart rate of 169 bpm. There is a normal amniotic fluid volume. The largest amniotic fluid pocket measures 4.27 cm. The amniotic fluid index (KENDRICK) is 11.37 cm. The placenta is anterior in location and is not low lying. There are Grade 2 placental changes. The cervix was not measured BIOMETRY: BPD: 9.96 cm: 40 weeks, 6 days HC: 35.71 cm: beyond chart AC: 35.16 cm: 39 weeks, 0 days FL: 6.95 cm: 35 weeks, 4 days Age by LMP: 38 weeks, 3 days. KD by LMP: 05/31/2021. age by prior US: 39 weeks, 4 days. KD by prior US: 05/23/2021. age by current US: 38 weeks, 3 days. KD by current US: 05/31/2021. Estimated weight: 3577 grams, +/- 537 grams, 71.9 percentile. US/OB Limited With Biometrics IMPRESSION: Single live intrauterine at 38 weeks, 3 days by current ultrasound KD of 05/31/2021. Heart rate of 169 bpm. No suspicious sonographic findings, KD and current study is 8 days later than on the previous examination. Electronically Signed: Leonard Kruse MD at 12:59 EDT ,
== END 2021-05-20 23:59 | disposition home or self-care (01) ==
LOC: US 09:50
PROVIDERS: PCP Family Medicine; Referring Provider Nurse Practitioner Women's Health; Visit Provider Nurse Practitioner Women's Health
DX: O98.513 Other viral diseases complicating pregnancy, third trimester (principal); U07.1 COVID-19; Z3A.36 36 weeks gestation of pregnancy
CPT/HCPCS: 76816

== ENCOUNTER 2021-05-31 07:15 | Inpatient (IN) | payer OTHER, BC, SELFPAY ==
[2021-05-31] VITALS (14 sets, daily range): BP systolic 105–135; BP diastolic 55–72; PULSE 76–111; RESP 14–16; TEMP 36.6–36.8; O2SAT 97; BMI 32.3
--- NOTE | 2021-05-31 07:59 | HP.PCM.OB_ITS ---
HPI - General General Date of Admission: 05/31/21 HPI Narrative JACE EVANS, is a 25 y/o @ 40 weeks 0d F who presents to L&D 7 cm dilated with bulging membranes. She is requesting to proceed with labor without an epidural Maternal Data Information KD Calculator Estimated Delivery Date Method Current WG Current Estimate 05/31/21 Ultrasound #1 40w 0d Other Estimates 06/07/21 LMP (Certain) 39w 0d [facility] Medical History Anemia Lab test positive for detection of COVID-19 virus Home Medications multivitamin no.47-iron fum 27 mg-folate no.1 1 mg-dha 300 mg capsule 1 cap PO DAILY 10/16/20 [History Last Taken 05/17/21 12:00] aspirin 81 mg chewable tablet 81 mg PO DAILY 12/17/20 [History Last Taken 05/17/21 12:00] Allergy/AdvReac Type Severity Reaction Status Date / Time No Known Allergies Allergy Verified 05/28/21 11:25 Family History Mother Hypertension Surgical History [place] teeth extracted Social History adopted: No household members: spouse housing: house current occupational status: employed current occupation: [employer] pets and animals: Yes history of recent travel: No sexually active: Yes Smoking Status: Never smoker second hand exposure: No alcohol intake: current details: social substance use type: does not use what type of physical activity do you participate in: none seatbelt use: always do you feel safe at home: Yes additional social history: - [employer] History 2 Elective abortions Hx Para 1 Spontaneous abortions Hx # Term Pregnancies Ectopic pregnancies Hx # Pregnancies Multiple births # of living children 1 Past Pregnancies Del. Date Name GA/Weeks Outcome Route Bth Weight Infant Gen Labor Lgth Anesthesia Del Locatn Provider FOB 05/26/19 Eric 39 live - full term 6lbs 14oz Female 7 h ours local [facility] Visit Details Expected Delivery Route/Plan Labor Preferences- CB/BF classes: no labor support person: James labor intervention preferences: [] pain management options preferred: limited intervention cut cord/dad catch: yes : yes PP control planned: discussed discussed possible routes of delivery and associated risks: [] special requests: [] Plans Covid status: non immune, counseled regarding risk of covid in vs vaccination and considering vaccination Flu vaccine: employee [facility] Tdap vaccine: given Rhogam:na LARC form signed: done movement and labor precautions reviewed. Problem list reviewed and updated with the most current plan of care details and appropriate orders placed. Relevant counseling for the gestational age provided. Continue routine care and follow up unless otherwise noted in visit notes/problem list details OB Flowsheet Initial Weight: 174 lb Date -?-?-?-?-?-?-?-?-?-?-?-?- EGA Weight BP Urine Prot -?-?-?-?-?-?-?-?-?-?-?-?- Glucose FHR FuHt Pres Dilation -?-?-?-?-?-?-?-?-?-?-?-?- Effaced St Visit Note 11/07/20 -?-?-?-?-?-?-?-?-?-?-?-?- 10w 5d 174 lb 8 oz (+8 oz) 120/78 -?-?-?-?-?-?-?-?-?-?-?-?- 185 -?-?-?-?-?-?-?-?-?-?-?-?- SM- CRL cons wit h LMP SM- CRL 3.4 cm NOT cons with LMP, also had early pos preg test, will change KD to 05/31/21 11/21/20 -?-?-?-?-?-?-?--?-?-?-?-?- 12w 5d 178 lb (+4 lb) 108/62 -?-?-?-?-?-?-?-?-?-?-?-?- 160 -?-?-?-?-?-?-?-?-?-?-?-?- SM- no vb crampi ng recovered from covid 12/17/20 -?-?-?-?-?-?-?-?-?-?-?-?- 16w 3d 183 lb 4 oz (+9 lb 4 oz) 118/62 Negative -?-?-?-?-?-?-?-?-?-?-?-?- Negative 151 -?-?-?-?-?-?-?-?-?-?-?-?- MH-No VB, LOF. Nausea improved. Taking ASA daily. Order anatomy US [facility] 01/13/21 -?-?-?-?-?-?-?-?-?-?-?-?- 20w 2d 186 lb 6 oz (+12 lb 6 oz) 110/70 Negative -?-?-?-?-?-?-?-?-?-?-?-?- Negative 150 -?-?-?-?-?-?-?-?-?-?-?-?- JV- pt is having a rapid heart rate from time to time especially at work ([employer] [facility]) anatomy scan is scheduled for tomorrow. 02/11/21 -?-?-?-?-?-?-?-?-?-?-?-?- 24w 3d 190 lb (+16 lb) 130/82 Negative -?-?-?-?-?-?-?-?-?-?-?-?- Negative 150 -?-?-?-?-?-?-?-?-?-?-?-?- JV- no lof, vagi nal bleeding, or dec fm. rpt scan coming up soon. 03/12/21 -?-?-?-?-?-?-?-?-?-?-?-?- 28w 4d 198 lb 8 oz (+24 lb 8 oz) 110/78 Negative -?-?-?-?-?-?-?-?-?-?-?-?- Negative 145 -?-?-?-?-?-?-?-?-?-?-?-?- JV- bb now in 7t h% per [facility] radiology report had covid twice. She is willing to see MFM 04/03/21 -?-?-?-?--?-?-?-?-?-?-?-?- 31w 5d 198 lb 4 oz (+24 lb 4 oz) 98/68 Negative -?-?-?-?-?-?-?-?-?-?-?-?- Negative 140 32 -?-?-?-?-?-?-?-?-?-?-?-?- JV - no lof ,vag inal bleeding, or dec fm. had follow up scan with MFM and scan was normal. 04/17/21 -?-?-?-?-?-?-?-?-?-?-?-?- 33w 5d 201 lb (+27 lb) 130/68 Negative -?-?-?-?-?-?-?-?-?-?-?-?- Negative 145 33 -?-?-?-?-?-?-?-?-?-?-?-?- JV- no lof, vagi nal bleeding, or dec fm. growth scan wednesday and plan for 38 weeks after that. 04/29/21 -?-?-?-?-?-?-?-?-?-?-?-?- 35w 3d 202 lb 8 oz (+28 lb 8 oz) 122/66 Negative -?-?--?-?-?-?-?-?-?-?-?-?- Negative 145 35 Breech -?-?-?-?-?-?-?-?-?-?-?-?- SM- no vb lof go od fm no regular ctx 05/07/21 -?-?-?-?-?-?-?-?-?-?-?-?- 36w 4d 206 lb 4 oz (+32 lb 4 oz) 206 lb 4 oz (+32 lb 4 oz) 126/60 Negative -?-?-?-?-?-?-?-?-?-?-?-?- Negative 136 37 Cephalic -?-?-?-?-?-?-?-?-?-?-?-?- JV- vertex today . gbs collected. no complaints. plan for 38 week growth scan per mfm. 05/15/21 -?-?-?-?-?-?-?-?-?-?-?-?- 37w 5d 204 lb (+30 lb) 104/66 Negative -?-?-?-?-?-?-?-?-?-?-?-?- Negative 152 37 Cephalic 0 -?-?-?-?-?-?-?-?-?-?-?-?- 40 -4 -conf ce phalic with US. No VB, LOF. Good Fm. No CTX 05/19/21 -?-?-?-?-?-?-?-?-?-?-?-?- 38w 2d 209 lb (+35 lb) 110/80 -?-?-?-?-?-?-?-?-?-?-?-?- 120 38 Cephalic 0 -?-?-?-?-?-?-?-?-?-?-?-?- SM- seen yesterd ay for dec fm now WNL no vb lof no regular ctx 05/28/21 -?-?-?-?-?-?-?-?-?-?-?-?- 39w 4d 205 lb 6 oz (+31 lb 6 oz) 130/86 111/77 Negative -?-?-?-?-?-?-?-?-?-?-?-?- Negative 135 38 Cephalic 1 -?-?-?-?-?-?-?--?-?-?-?-?- 50 JV- plan sarah for IOL next week. No complaints 05/31/21 -?-?-?-?-?-?-?-?-?-?-?-?- 40w 0d 206 lb 5.643 oz (+32 lb 5.643 oz) 133/72 123/60 -?-?-?-?-?-?-?-?-?-?-?-?- -?-?-?-?-?-?-?-?-?-?-?-?- ROS Constitutional Constitutional: Denies change in weight, fatigue, fever(s), headache(s), poor appetite or weakness Eyes Eyes: Denies blurry vision, change in vision, seeing flashes or spots in vision ENT HEENT: Denies dizziness, headache(s), loss taste/smell or sore throat Cardiovascular Cardiovascular: Denies chest pain, dizziness, dyspnea, irregular heart rhythm, leg edema, palpitations, rapid heart rate or vomiting Respiratory/Chest Respiratory/Chest: Denies chest tightness, cough, dyspnea or breast pain Gastrointestinal Gastrointestinal: Denies abdominal pain, anorexia, constipation, cramping, diarr hea, hemorrhoids, vomiting or weight changes Genitourinary Genitourinary: Denies dysuria, flank pain, genital lesions, genital pain, urinary frequency or urinary urgency Musculoskeletal Musculoskeletal: Denies back pain, difficulty walking, joint pain, limited range of motion, muscle cramps or numbness Integumentary Integumentary: Denies lesions or unusual bruising Neurologic Neurologic: Denies abnormal movements, abnormal speech, dizziness, numbness, seizure-like activity or syncope Psychiatric Psychiatric: Denies anxiety, behavioral changes, change in appetite, change in libido, cognitive impairment, confusion, depression, difficulty concentrating, hallucinations or suicidal thoughts Endocrine Endocrinology: Denies excessive sweating, polydipsia or polyuria Hematologic/Lymphatic Hematologic/Lymphatic: Denies easy bleeding, easy bruising or lymphadenopathy Allergic/Immunologic Allergic/Immunologic: Denies itchy eyes, lip swelling, seasonal rhinorrhea, rhinitis, throat swelling, tongue swelling, eczemia, wheezing or asthma Vital Signs Vital Signs Vital Signs: 05/31/21 07:33 Temperature 98.2 F Temperature Source Temporal Pulse Rate 111 H Blood Pressure 133/72 H BP Systolic 133 BP Diastolic 72 Weight Weight: 206 lb 5.643 oz Body Mass Index (BMI) 32.3 Physical Exam Const alert, oriented x3, no apparent distress and healthy appearing General Appearance: cooperative; Negative for anxious HEENT normocephalic Face and Sinus: normal facial exam Eyes EOMs intact bilaterally and no scleral icterus General Eye: normal appearance of both eyes Neck full ROM and supple Lymph Lymphatic: no lymphadenopathy noted Chest Chest: abnormal inspection of the chest Resp normal respiratory effort Effort and Inspection: able to speak in complete sentences Cardio regular rate GI soft to palpation and non-tender Inspection: gravid Palpation: soft; Negative for tender external exam normal Amniotic Fluid: other cx is 7-8/80/0 Back/Spine no CVA tenderness Extremity normal to inspection, full ROM and no clubbing, cyanosis or edema General Extremity: Negative for calf tenderness or edema Skin Lesions: no lesions Rashes: no rashes Psych mental status grossly normal Labs Labs Labs: Blood Type A POSITIVE Antibody Screen NEGATIVE Hct 33.4 % (37-47) L Hgb 10.8 g/dL (12.0-15.0) L Obstetrics US Syphilis Total Ab Non-reactive Rubella IgG Antibody Reactive (Nonreactive) Hep Bs Antigen Non-Reactive (Nonreactive) Chlamydia DNA (LONNIE) Negative (Negative) Neisseria gonorrhoeae DNA (LONNIE) Negative (Negative) HIV 1&2 Antibody Non-Reactive (Nonreactive) Glucose 1 Hr 50 gm 78 mg/dL (70-140) Rhogam given: No Miscellaneous Test Assessment & Plan (1) History of tetanus, diphtheria, and acellular pertussis booster vaccination (Tdap): COMMENT: 04/29/21 (2) Anemia: QUALIFIERS: Anemia type: iron deficiency Iron deficiency anemia type: unspecified iron deficiency Qualified Code(s): D50.9 - Iron deficiency anemia, unspecified COMMENT: lower level of normal (3) Placental abnormality: QUALIFIERS: Trimester: third trimester Qualified Code(s): 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 81mg asa, growth US 34 & 38 wk due to having one @ 31 wks. wkly BPP after 32 wks. NL growth on 04/21/21, nl growth 05/19 (5) Supervision of other normal : COMMENT: PRR KD: 06/07/21 PC: Eric Spouse: James. pt works at [employer] at [employer] (6) : QUALIFIERS: Weeks of gestation: 38 weeks Qualified Code(s): Z3A.38 - 38 weeks gestation of COMMENT: anatomy nl, declines carrier, genetic and NTD. GBS neg (7) ASCUS of cervix with negative high risk HPV: COMMENT: repeat 3 years PLAN: Patient presents IAL, plan expectant management for , pitocin/AROM PRN if needed. Pain management: none. GBS negative . Management of any complications: none I have reviewed the [facility] and made any clinically relevant updates.
[2021-05-31 08:05] LABS: Absolute Neutrophil Count 11.4 X10^3/uL (2.0-7.7); Basophil# 0.05 X10^3/uL; Basophil% 0.4 % (0-1); Hematocrit 33.1 % (37-47); Hemoglobin 10.8 g/dL (12.0-15.0); Lymphocyte % 13.5 % (19-41); Mean Corp Hgb Conc 32.6 g/dL (32-36); Mean Corpuscular Hgb 25.4 pg (27.0-32.0); Mean Corpuscular Volume 77.7 fL (81-99); Mean Platelet Vol. 13.5 fl (6.2-12.0); Monocyte# 0.48 X10^3/uL; Monocyte% 3.4 % (0-10); NRBC Flagged by Analyzer 0 % (0-5); Neutrophil # 11.41 X10^3/uL (2.7-7.7); Neutrophil % 81.3 % (47-70); Platelet Count 225 K/mm3 (150-450); RBC Distribution Width CV 15.8 % (11.6-14.6); RBC Distribution Width SD 43.9 fl (35.1-43.9); Red Blood Count 4.26 M/mm3 (4.2-5.4)
[2021-05-31] MEDS: Oxytocin 30 units/NS 500 ml 30 UNITS/500 ML IV.SOLN IV (08:57)
[2021-05-31] MEDS: Oxytocin 30 units/NS 500 ml 30 UNITS/500 ML IV.SOLN 334 UNITS IV (10:50)
--- NOTE | 2021-05-31 10:50 | OP.PCM_ITS ---
Maternal Data Information KD Calculator Estimated Delivery Date Method Current Current Estimate 05/31/21 Ultrasound #1 40w 0d Other Estimates 06/07/21 LMP (Certain) 39w 0d Vaginal Delivery Maternal Presentation Maternal Presentation: Active Labor Operative Information Date of Procedure: 05/31/21 Pre-Operative Diagnosis: 40 weeks , active labor Post-Operative Diagnosis: 40 weeks , active labor Type of Anesthesia: None Estimated Blood Loss: 50cc Findings Description of Procedure: Patient began pushing and delivered the head in the LEYDA presentation. The head was delivered atraumatically. The anterior and posterior shoulders delivered without complication followed by the rest of the and the infant was placed on the maternal abdomen. Delayed cord clamping was employed for approximately 60 seconds. Cord was clamped and cut and gentle traction was applied to the cord and the placenta delivered spontaneously immediately following it was noted to be intact with three-vessel cord. The perineum and vagina were inspected and noted to have no laceration. EBL was 50cc. Patient and tolerated delivery well. Presentation: Vertex Amniotic Fluid Description: Clear Cord Entanglement: None A Gender: Male (1 minute): 8 (5 minute): 9 Delayed Cord Clamping: Yes Post Vaginal Delivery Medications Given After Delivery: IV Pitocin Episiotomy Description: None Laceration: None Complication Complications: None Multi Select Codes Urinary/Genital Urinary/Genital CPT Codes: 53587 Vaginal Delivery [facility]
--- NOTE | 2021-05-31 10:54 | PCM.DC ---
Discharge Instructions Diet Discharge Diet: No restrictions Activity Discharge Activity: Return to Normal Activity, May Not Drive (while taking narcotic pain medications.) and May Shower May resume sexual activity in: 4-6 weeks Dressing / Incision Call your doctor if your incision/area has: Continuous Slow Oozing, Sudden Increased Bleeding, Increased Pain/ Swelling, Increased Redness and Foul Smelling Discharge Follow Up Care Please Follow Up With: Felicitas Jasso DO When: Call [phone] to make an appointment with your doctor in 6 weeks. If you had elevated blood pressure or 4th degree laceration, you will need to be seen in 2 weeks. Test Results: Test results from this visit will be discussed in further detail at your follow-up appointment, if applicable. Discharge Plan Admission Admit Date/Time: 05/31/21 07:15 Primary Reason for Your Visit: vaginal delivery Attending Provider: Felicitas Jasso Primary Care Provider: Horacio Mondragon Discharge Orders/Prescriptions Prescriptions: New ibuprofen 800 mg tablet 800 mg PO Q8H PRN (Reason: pain) 7 Days Qty: 30 RF: 0 Continued PNV-DHA 27 mg iron-1 mg -300 mg capsule 1 cap PO DAILY RF: 0 Discontinued aspirin 81 mg tablet,chewable 81 mg PO DAILY RF: 0 Referrals / Follow Up: Horacio Mondragon MD [Primary Care Provider] - Disposition Disposition (needs filled in before D/C Order can be placed): Home, Self Care
[2021-05-31] MEDS: Acetaminophen 500 MG Tablet 1000 MG PO (16:05)
[2021-05-31] MEDS: Ibuprofen 600 MG Tablet PO (18:01)
[2021-06-01] VITALS (7 sets, daily range): BP systolic 110–120; BP diastolic 56–65; PULSE 64–102; RESP 14–16; TEMP 36.3–36.6; O2SAT 97
[2021-06-01] MEDS: Acetaminophen 500 MG Tablet 1000 MG PO (00:35)
[2021-06-01] MEDS: Ibuprofen 600 MG Tablet PO (03:28)
--- NOTE | 2021-06-01 07:20 | NURSING ---
report given to Vanessa Del Cid RN who is assuming care of pt at this time
--- NOTE | 2021-06-01 10:45 | PCM.PN.OB ---
Subjective Subjective Patient doing well without complaints. Tolerating PO. Ambulating and voiding without difficulty. Feeding well. Denies chest pain, shortness of breath, calf pain/swelling, fevers, chills, lightheadedness. Objective Data Objective Data Vital Signs: Vital Signs Temp Pulse Resp BP Pulse Ox 97.6 F L 69 14 110/65 97 06/01/21 08:20 06/01/21 08:20 06/01/21 08:20 06/01/21 08:20 06/01/21 08:19 Oxygen Delivery Method Room Air Weight: 206 lb 5.643 oz Body Mass Index (BMI) 32.3 Intake & Output: Intake and Output for Last 24 Hours 05/30/21 05/31/21 06/01/21 23:59 23:59 23:59 Intake Total 503.67 / 503.67 Output Total 600 / 600 Balance -96.33 / -96.33 Lab / Micro Data Result Diagrams: 05/31/21 07:35 Micro: Microbiology 05/31/21 07:30 Nasal Secretion SARS-CoV-2 Antigen (Rapid) - Final ROS Constitutional Constitutional: Denies chills, fatigue, fever(s), poor appetite or weakness Eyes Eyes: Denies blurry vision, change in vision, seeing flashes or spots in vision ENT HEENT: Denies dizziness, headache(s), loss taste/smell or sore throat Cardiovascular Cardiovascular: Denies chest pain, dizziness, dyspnea, irregular heart rhythm, palpitations or rapid heart rate Respiratory/Chest Respiratory/Chest: Denies chest tightness, cough, dyspnea or breast pain Gastrointestinal Gastrointestinal: Denies abdominal pain, constipation or vomiting Genitourinary Genitourinary: Denies dysuria or flank pain Musculoskeletal Musculoskeletal: Denies difficulty walking, joint pain, limited range of motion or numbness Neurologic Neurologic: Denies abnormal movements, abnormal speech, dizziness, numbness, seizure-like activity or syncope Psychiatric Psychiatric: Denies anxiety, behavioral changes, change in appetite, confusion, depression or suicidal thoughts Physical Exam Const alert, oriented x3 and no apparent distress General Appearance: cooperative and comfortable Resp normal respiratory effort Cardio regular rate GI normal to inspection, nondistended, normoactive bowel sounds GI Narrative: uterus is firm below umbilicus Palpation: soft Bimanual Exam - Adnexa, Other: Negative for cul-de-sac fullness Back/Spine no CVA tenderness and thoraco-lumbar ROM normal Extremity normal to inspection, no clubbing, cyanosis or edema, no calf tenderness and no pedal edema Psych mental status grossly normal, thought process normal, cooperative, affect normal, speech normal, activity/motor behavior normal, denies homicidal ideation and denies suicidal ideation Assessment & Plan (1) Status post vaginal delivery: COMMENT: baby boy Larry 40 weeks - JV PLAN: s/p PPD # 1 1. routine post delivery care 2. breast feeding- support given 3. rh positive 4. rubella immune 5. dc to home today
== END 2021-06-01 13:15 | disposition home or self-care (01) | DRG 807 ==
PROVIDERS: Admitting Provider Obstetrics & Gynecology; PCP Family Medicine; Visit Provider Obstetrics & Gynecology
DX: O43.103 Malformation of placenta, unspecified, third trimester (principal); Z37.0 Single live birth; D50.9 Iron deficiency anemia, unspecified; O99.02 Anemia complicating childbirth; Z79.82 Long term (current) use of aspirin; Z3A.40 40 weeks gestation of pregnancy; Z86.16 Personal history of COVID-19
CPT/HCPCS: 59025; 59050; 85025; 86850; 86900; 86901; 87426; 99218; G0378

== ENCOUNTER 2022-06-10 10:54 | Outpatient (REF) | payer OTHER, SELFPAY | END 2022-06-10 11:54 | disposition home or self-care (01) | LOC: WPOUT 10:54 | PROVIDERS: PCP Family Medicine; Referring Provider Obstetrics & Gynecology; Visit Provider Obstetrics & Gynecology | DX: R69 Illness, unspecified (principal) | CPT/HCPCS: 36415 ==

== ENCOUNTER → 2022-08-13 | Outpatient (CLI) | payer OTHER, SELFPAY ==
[2022-08-19 20:24] LABS: HPV Reflexed? NOT INDICATED
== END | disposition home or self-care (01) ==
LOC: LABSPEC 16:42
PROVIDERS: PCP Family Medicine; Visit Provider Obstetrics & Gynecology
DX: Z12.4 Encounter for screening for malignant neoplasm of cervix (principal)
CPT/HCPCS: 88175; G0145

== ENCOUNTER → 2023-09-01 | Outpatient (CLI) | payer OTHER, SELFPAY ==
[2023-09-06 18:47] LABS: HPV Reflexed? NOT INDICATED
== END | disposition home or self-care (01) ==
PROVIDERS: PCP Family Medicine; Referring Provider Nurse Practitioner Family; Visit Provider Nurse Practitioner Family
DX: Z12.4 Encounter for screening for malignant neoplasm of cervix (principal)
CPT/HCPCS: 88175; G0145